=== PATIENT | female | born 1985 | race Caucasian/White ===

== ENCOUNTER → 2020-03-23 | Outpatient (CLI) | payer BC ==
[~2020-03-23] MED LIST: ASPIRIN CHEWABL81 MG PO; COLACE 100MG C100 MG PO; IBUPROFEN800 MG PO; LABETALOL HCL300 MG PO; LOVENOX40 MG/0.4 SQ; NOVOLIN N100 UNIT/1 SQ; PERCOCET 5/325 T1 EA PO; PRENATAL TABLE1 EAC1 PO; PROCARDIA XL30 MG PO; TORADOL 10 MG T10 MG PO; ZOFRAN4 MG PO
== END ==
LOC: ECHO 10:00
DX: O99.891 Other specified diseases and conditions complicating pregnancy (principal); R00.0 Tachycardia, unspecified; R06.02 Shortness of breath; R00.2 Palpitations
CPT/HCPCS: ECHO; 93306

== ENCOUNTER 2020-05-14 19:12 | Outpatient (CLI) | payer BC ==
[~2020-05-14 19:12] MED LIST changes: -LABETALOL HCL300 MG PO; -LOVENOX40 MG/0.4 SQ; -PROCARDIA XL30 MG PO
== END 2020-05-14 21:28 | disposition home or self-care (01) ==
LOC: GENOP 19:12
DX: O62.9 Abnormality of forces of labor, unspecified (principal); O47.02 False labor before 37 completed weeks of gestation, second trimester; Z3A.23 23 weeks gestation of pregnancy
CPT/HCPCS: G0463

== ENCOUNTER 2020-06-20 12:23 | Outpatient (CLI) | payer BC | END 2020-06-20 15:00 | disposition home or self-care (01) | LOC: GENOP 12:23 | DX: O36.8130 Decreased fetal movements, third trimester, not applicable or unspecified (principal); Z3A.28 28 weeks gestation of pregnancy | CPT/HCPCS: G0463 ==

== ENCOUNTER → 2020-07-22 | Outpatient (CLI) | payer BC ==
[~2020-07-22] MED LIST changes: +LABETALOL HCL300 MG PO; +LOVENOX40 MG/0.4 SQ; +PROCARDIA XL30 MG PO
== END ==
LOC: KOH-I 13:00
DX: E04.1 Nontoxic single thyroid nodule (principal)
CPT/HCPCS: 76536

== ENCOUNTER 2020-08-03 15:48 | Outpatient (CLI) | payer BC ==
[~2020-08-03 15:48] MED LIST changes: -LABETALOL HCL300 MG PO; -LOVENOX40 MG/0.4 SQ; -PROCARDIA XL30 MG PO
[2020-08-03 16:41] LABS: HEMOGLOBIN 9.6 gm/dl (12.3-15.3); RED BLOOD COUNT 3.5 M/UL (4.00-5.10)
[2020-08-03 16:52] LABS: BUN/CREATININE RATIO 13 (0-10)
== END 2020-08-03 22:29 | disposition other institution (70) ==
LOC: GENOP 15:48
PROVIDERS: Obstetrics & Gynecology
DX: O16.3 Unspecified maternal hypertension, third trimester (principal); O30.043 Twin pregnancy, dichorionic/diamniotic, third trimester; O24.410 Gestational diabetes mellitus in pregnancy, diet controlled; O32.1XX0 Maternal care for breech presentation, not applicable or unspecified; O30.003 Twin pregnancy, unspecified number of placenta and unspecified number of amniotic sacs, third trimester; O99.283 Endocrine, nutritional and metabolic diseases complicating pregnancy, third trimester; E75.5 Other lipid storage disorders; E28.2 Polycystic ovarian syndrome; O99.343 Other mental disorders complicating pregnancy, third trimester; F41.9 Anxiety disorder, unspecified; Z86.711 Personal history of pulmonary embolism; Z91.041 Radiographic dye allergy status; Z88.8 Allergy status to other drugs, medicaments and biological substances; Z79.899 Other long term (current) drug therapy; Z3A.34 34 weeks gestation of pregnancy
CPT/HCPCS: 36415; 51702; 80053; 81001; 82570; 82962; 83615; 84156; 84550; 85025; 96360; 96361; 96366; 96367; 96372; 96374; 96375; C9113; J0702; J1200; J2300; J2405; J3105; J3475

== ENCOUNTER 2020-08-12 16:51 | Observation (INO) | payer BC ==
[~2020-08-12] VITALS: Ht 165.1 cm; Wt 120.2 kg
[2020-08-12] MEDS ORDERED: LABETALOL HCL300 MG PO (18:07)
[2020-08-12] MEDS ORDERED: LOVENOX40 MG/0.4 SQ (18:08)
[2020-08-12 18:11] LABS: HEMOGLOBIN 8.8 gm/dl (12.3-15.3); RED BLOOD COUNT 3.22 M/UL (4.00-5.10); WHITE BLOOD COUNT 8.9 K/UL (4.5-11.0)
[2020-08-12 18:14] LABS: URINE TOTAL PROTEIN 67 mg/dl
[2020-08-12 18:31] LABS: BUN/CREATININE RATIO 10 (0-10)
[2020-08-15] MEDS ORDERED: PROCARDIA XL30 MG PO (10:26)
[2020-08-18 16:12] LABS: M-SPIKE, % Not Observed % (Not Observed); PROTEIN,TOTAL,URINE 56.3 mg/dL (Not Estab.)
== END 2020-08-15 11:25 | disposition home or self-care (01) ==
LOC: GENOP 16:51 → OB 17:06
PROVIDERS: ADMIT Obstetrics & Gynecology
DX: O11.5 Pre-existing hypertension with pre-eclampsia, complicating the puerperium (principal); O10.93 Unspecified pre-existing hypertension complicating the puerperium; O99.345 Other mental disorders complicating the puerperium; F41.9 Anxiety disorder, unspecified; O99.285 Endocrine, nutritional and metabolic diseases complicating the puerperium; E28.2 Polycystic ovarian syndrome; Z87.59 Personal history of other complications of pregnancy, childbirth and the puerperium; Z87.440 Personal history of urinary (tract) infections; Z86.718 Personal history of other venous thrombosis and embolism; Z91.041 Radiographic dye allergy status; Z88.8 Allergy status to other drugs, medicaments and biological substances; Z79.899 Other long term (current) drug therapy
CPT/HCPCS: 36415; 80053; 83615; 83735; 84156; 84166; 84550; 85025; 86335; 96374; 96375; G0378; J1940; J3475; J7120

== ENCOUNTER → 2021-01-21 | Outpatient (CLI) | payer BC, OTHER ==
[~2021-01-21] MED LIST changes: +LABETALOL HCL300 MG PO; +LOVENOX40 MG/0.4 SQ; +PROCARDIA XL30 MG PO
[2021-01-21 09:42] LABS: HEMOGLOBIN 14.3 gm/dl (12.3-15.3); RED BLOOD COUNT 5.01 M/UL (4.00-5.10); WHITE BLOOD COUNT 8.4 K/UL (4.5-11.0)
[2021-01-21 10:03] LABS: BUN/CREATININE RATIO 16 (0-10)
== END ==
LOC: LAB 08:59
PROVIDERS: Nurse Practitioner Family
DX: I10 Essential (primary) hypertension (principal)
CPT/HCPCS: 36415; 80053; 80061; 82570; 82607; 84156; 84439; 84443; 85025

== ENCOUNTER → 2021-04-18 | Outpatient (CLI) | payer BC, OTHER | LOC: KOH-I 11:00 | DX: M79.605 Pain in left leg (principal); I82.502 Chronic embolism and thrombosis of unspecified deep veins of left lower extremity | CPT/HCPCS: 93971 ==

== ENCOUNTER → 2021-06-21 | Outpatient (CLI) | payer BC, OTHER | LOC: EXRD 09:15 | DX: R10.11 Right upper quadrant pain (principal) | CPT/HCPCS: 76705 ==

== ENCOUNTER → 2021-07-14 | Day surgery (SDC) | payer BC, OTHER ==
[~2021-07-14] MED LIST changes: +FLONASE ALLER15.8 ML; +HYDROCODON-ACE1 EAC4 PO; +LISINOPRIL5 MG PO; +LOPRESSOR 25 MG25 MG PO; +VALACYCLOVIR1000 MG PO; +WELLBUTRIN XL300 MG PO; +XYZAL5 MG PO
== END | disposition home or self-care (01) ==
LOC: OR 06:57
DX: K81.1 Chronic cholecystitis (principal); D13.5 Benign neoplasm of extrahepatic bile ducts; J45.909 Unspecified asthma, uncomplicated; K21.9 Gastro-esophageal reflux disease without esophagitis; F41.9 Anxiety disorder, unspecified; F32.A Depression, unspecified; E66.9 Obesity, unspecified; Z68.41 Body mass index [BMI] 40.0-44.9, adult; Z88.8 Allergy status to other drugs, medicaments and biological substances; Z91.041 Radiographic dye allergy status; Z79.899 Other long term (current) drug therapy
CPT/HCPCS: 84703; C1729; J0690; J1100; J1170; J2250; J2405; J2550; J2704; J2710; J3010; J7030; J7120

== ENCOUNTER 2021-10-11 14:38 | Emergency (ER) | payer BC, OTHER ==
[2021-10-11] MEDS ORDERED: RABIES VACCINE IM (15:24)
== END 2021-10-11 17:31 | disposition home or self-care (01) ==
LOC: ER1 14:38
DX: S61.052A Open bite of left thumb without damage to nail, initial encounter (principal); I10 Essential (primary) hypertension; Z90.49 Acquired absence of other specified parts of digestive tract; Z88.1 Allergy status to other antibiotic agents; Z91.041 Radiographic dye allergy status; W55.01XA Bitten by cat, initial encounter; Y92.410 Unspecified street and highway as the place of occurrence of the external cause
CPT/HCPCS: 90375; 90376; 90471; 90675; 90715; 96372; 99283

== ENCOUNTER → 2021-10-14 | Outpatient (CLI) | payer BC, OTHER ==
[~2021-10-14] VITALS: Ht 165.1 cm; Wt 121.1 kg
[~2021-10-14] MED LIST changes: +RABIES VACCINE IM
== END ==
LOC: OPSV 12:59
DX: Z53.9 Procedure and treatment not carried out, unspecified reason (principal)
CPT/HCPCS: 90471; 90675

== ENCOUNTER → 2021-10-17 | Outpatient (CLI) | payer BC, OTHER | LOC: KOH-I 14:00 | DX: E04.1 Nontoxic single thyroid nodule (principal) | CPT/HCPCS: 76536 ==

== ENCOUNTER → 2021-10-19 | Outpatient (CLI) | payer BC, OTHER ==
[~2021-10-19] VITALS: Ht 165.1 cm; Wt 121.1 kg
== END ==
LOC: OPSV 12:57
DX: Z53.9 Procedure and treatment not carried out, unspecified reason (principal)
CPT/HCPCS: 90471; 90675

== ENCOUNTER → 2021-10-25 | Outpatient (CLI) | payer BC, OTHER ==
[~2021-10-25] VITALS: Ht 165.1 cm; Wt 121.1 kg
[2021-10-25 10:24] LABS: HEMOGLOBIN 14.1 gm/dl (12.3-15.3); RED BLOOD COUNT 4.8 M/UL (4.00-5.10); WHITE BLOOD COUNT 8.6 K/UL (4.5-11.0)
== END ==
LOC: OPSV 09:00
PROVIDERS: Physician Assistant
DX: E04.9 Nontoxic goiter, unspecified (principal); I10 Essential (primary) hypertension; R73.01 Impaired fasting glucose; R10.13 Epigastric pain; R19.06 Epigastric swelling, mass or lump; M54.6 Pain in thoracic spine
CPT/HCPCS: 72072; 80061; 82570; 82607; 83036; 84156; 84439; 84443; 85025; 90675; 96372

== ENCOUNTER → 2021-11-08 | Outpatient (CLI) | payer BC, OTHER ==
[2021-11-08 11:52] LABS: BUN/CREATININE RATIO 11 (0-10)
== END ==
LOC: CT 11-07 11:30
PROVIDERS: Nurse Practitioner Family
DX: E04.9 Nontoxic goiter, unspecified (principal); I10 Essential (primary) hypertension; R73.01 Impaired fasting glucose; R10.9 Unspecified abdominal pain
CPT/HCPCS: 36415; 80053

== ENCOUNTER → 2021-11-10 | Outpatient (CLI) | payer BC, OTHER | LOC: CT 08:23 | DX: R10.9 Unspecified abdominal pain (principal) | CPT/HCPCS: Q9967 ==

== ENCOUNTER → 2021-11-24 | Outpatient (CLI) | payer BC, OTHER | LOC: US 10:00 | DX: E04.1 Nontoxic single thyroid nodule (principal) ==

== ENCOUNTER → 2021-11-30 | Outpatient (CLI) | payer BC, OTHER ==
[~2021-11-30] MED LIST changes: +FAMOTIDINE20 MG PO; +PROZAC40 MG PO
[2021-11-30 11:08] LABS: BUN/CREATININE RATIO 10 (0-10)
== END ==
LOC: OPSV2 08:00
PROVIDERS: Surgery
DX: Z01.812 Encounter for preprocedural laboratory examination (principal)
CPT/HCPCS: 80048; 84703